=== PATIENT | male | born 1965 | race Caucasian/White ===

== ENCOUNTER 2017-03-23 07:24 | Day surgery (SDC) | payer MEDICARE, MEDICAID ==
[~2017-03-23] VITALS: Ht 167.6 cm; Wt 87.0 kg
[2017-03-23 08:32] VITALS: BP 125/85
[2017-03-23] MEDS ORDERED: HUM100VI6 SQ ×2 (08:32)
[2017-03-23] MEDS ORDERED: METH750T2 PO (08:32)
[2017-03-23] MEDS ORDERED: SERT100T5 PO (08:32)
[2017-03-23] MEDS ORDERED: SIMV20TA3 PO (08:32)
[2017-03-23] MEDS ORDERED: TEMA15CA PO (08:32)
[2017-03-23] MEDS ORDERED: HYDR25TA6 PO (08:32)
[2017-03-23] MEDS ORDERED: METO25TA35 PO (08:32)
[2017-03-23] MEDS ORDERED: DIAZ5TAB4 PO (08:32)
[2017-03-23] MEDS ORDERED: CLON0.1T PO (08:32)
[2017-03-23] MEDS ORDERED: LISI-170 PO (08:32)
[2017-03-23] MEDS ORDERED: ESCI20TA PO (08:32)
[2017-03-23] MEDS ORDERED: TRAZ300T2 PO (08:32)
[2017-03-23] MEDS ORDERED: HYDR-3240 PO (08:32)
[2017-03-23] MEDS ORDERED: ASPI-496 PO (08:32)
[2017-03-23] MEDS ORDERED: LACTATED RINGERS 1,000 ML IV SCH (08:36)
[2017-03-23 09:08] LABS: PATH.CAST-FLAG NOT PRESENT; SPERM-FLAG NOT PRESENT; SRC-FLAG NOT PRESENT; XTAL-FLAG NOT PRESENT; YLC-FLAG NOT PRESENT
[2017-03-23 09:16] LABS: ASPARTATE AMINO TRANSFERASE 31 U/L (15-37); BLOOD UREA NITROGEN 24 mg/dL (7-18)
[2017-03-23] MEDS ORDERED: METOPROLOL TARTRATE 25 MG TABLET PO SCH (09:30)
[2017-03-23] MEDS ORDERED: EPHEDRINE 50 MG/ML, 1ML ONE (09:38)
[2017-03-23] MEDS ORDERED: PROPOFOL 10 MG/ML, 20ML ONE (09:38)
[2017-03-23] MEDS ORDERED: ONDANSETRON 2MG/ML, 2ML ONE (09:38)
[2017-03-23] MEDS ORDERED: FENTANYL PF 100 MCG/2ML ONE ×2 (09:40→11:31)
[2017-03-23] MEDS ORDERED: MIDAZOLAM 1 MG/ML, 2ML ONE (09:40)
[2017-03-23] MEDS ORDERED: FENTANYL PF 100 MCG/2ML IV PRN (11:00)
[2017-03-23] MEDS ORDERED: HYDROcodone/APAP 7.5-325MG/15ML UDC PO PRN (11:00)
[2017-03-23] MEDS ORDERED: ONDANSETRON 2MG/ML, 2ML IVPush PRN (11:00)
[2017-03-23] MEDS ORDERED: hydrALAzine 20 MG/ML, 1ML IV PRN (11:00)
[2017-03-23] MEDS ORDERED: OXYcodone 5 MG/5 ML ORAL.SOL UDC PO PRN (11:00)
[2017-03-23] MEDS ORDERED: LABETALOL 5MG/ML, 20ML IV PRN (11:00)
[2017-03-23] MEDS ORDERED: MIDAZOLAM 1 MG/ML, 2ML IV PRN (11:00)
[2017-03-23] MEDS ORDERED: PROMETHAZINE 25 MG/ML, 1ML IV PRN (11:00)
[2017-03-23] MEDS ORDERED: HYDROmorphone 1 MG/ML, 1ML IV PRN (11:00)
[2017-03-23] MEDS ORDERED: MEPERIDINE/PF 25MG/0.5ML IVPush PRN (11:00)
[2017-03-23] MEDS ORDERED: ACETAMINOPHEN 325 MG TABLET PO PRN (11:00)
[2017-03-23] MEDS ORDERED: EPHEDRINE 50 MG/ML, 1ML IVPush PRN (11:00)
[2017-03-23] MEDS ORDERED: OXYcodone 5 MG/5 ML ORAL.SOL UDC ONE (11:31)
== END 2017-03-23 14:15 ==
LOC: OUT 07:24
PROVIDERS: ATTEND Urology
DX: N20.0 Calculus of kidney (principal); I10 Essential (primary) hypertension; E78.5 Hyperlipidemia, unspecified; E11.9 Type 2 diabetes mellitus without complications; K21.9 Gastro-esophageal reflux disease without esophagitis; F32.9 Major depressive disorder, single episode, unspecified; E03.9 Hypothyroidism, unspecified; G89.29 Other chronic pain; Z86.73 Personal history of transient ischemic attack (TIA), and cerebral infarction without residual deficits; Z79.82 Long term (current) use of aspirin; Z80.1 Family history of malignant neoplasm of trachea, bronchus and lung
CPT/HCPCS: 36415; 50590; 80053; 81001; 82962; 85025; 85610; 85730; 93005; J2405; J2704; J3010; J7120; J2250

== ENCOUNTER 2018-01-13 18:25 | Emergency (ER) | payer MEDICARE, MEDICAID ==
[~2018-01-13] VITALS: Ht 162.6 cm; Wt 75.0 kg
[~2018-01-13 18:25] MED LIST: ASPI-496 PO; CLON0.1T PO; DIAZ5TAB4 PO; ESCI20TA PO; HUM100VI6 SQ; HYDR-3240 PO; HYDR25TA6 PO; LISI-170 PO; METH750T2 PO; METO25TA35 PO; SERT100T5 PO; SIMV20TA3 PO; TEMA15CA PO; TRAZ300T2 PO
[2018-01-13] MEDS ORDERED: OXYMETAZOLINE NASAL SPRAY 0.05%, 15ML NAS ONE (19:00)
[2018-01-13] MEDS ORDERED: COCAINE TOPICAL SOLN 4%, 4ML TP ONE (19:00)
[2018-01-13] MEDS ORDERED: OXYMETAZOLINE NASAL SPRAY 0.05%, 15ML ONE (19:02)
[2018-01-13] MEDS ORDERED: COCAINE TOPICAL SOLN 4%, 4ML ONE (19:03)
[2018-01-13 19:27] LABS: BASOPHILS # (AUTO) 0.02 x10^3/uL (0-0.1); BASOPHILS % (AUTO) 0 % (0-1); EOSINOPHILS # (AUTO) 0.09 x10^3/uL (0-0.4); EOSINOPHILS % (AUTO) 2 % (1-7); LYMPHOCYTES % (AUTO) 34 % (22-44); MD NO; MEAN CORPUSCULAR HEMOGLOBIN 30.9 pg (27.5-34.5); MEAN CORPUSCULAR HGB CONC 34.1 g/dL (33.2-36.2); MEAN CORPUSCULAR VOLUME 90.4 fL (81-97); MONOCYTES # (AUTO) 0.44 x10^3/uL (0.2-0.8); MONOCYTES % (AUTO) 7 % (2-9); NEUTROPHILS # (AUTO) 3.41 x10^3/uL (1.8-6.8); NEUTROPHILS % (AUTO) 57 % (42-75); PLATELET COUNT 152 x10^3/uL (130-400); RED BLOOD COUNT 5.45 x10^6/uL (4.38-5.82); RED CELL DISTRIBUTION WIDTH 13.8 % (9.4-14.8)
[2018-01-13 19:33] LABS: INTERNATIONAL NORMALIZED RATIO 0.96 (0.93-1.1)
[2018-01-13 20:14] VITALS: BP 142/101
[2018-01-13] MEDS ORDERED: PRAS10TA4 PO (20:19)
[2018-01-13] MEDS ORDERED: METO25TA35 PO (20:19)
[2018-01-13] MEDS ORDERED: ATOR-2 PO (20:20)
[2018-01-13] MEDS ORDERED: HUM100VI SQ (20:23)
[2018-01-13] MEDS ORDERED: ACETAMINOPHEN 500 MG TABLET ONE (20:45)
[2018-01-13] MEDS ORDERED: ACETAMINOPHEN 500 MG TABLET PO ONE (21:00)
== END 2018-01-13 20:56 | disposition home or self-care (01) ==
LOC: ED 20:15
DX: R04.0 Epistaxis (principal); I25.2 Old myocardial infarction; Z86.73 Personal history of transient ischemic attack (TIA), and cerebral infarction without residual deficits
CPT/HCPCS: 30901; 36415; 85025; 85610; 85730; 99284